=== PATIENT | male | born 1950 | race Two or more races ===

== ENCOUNTER → 2016-08-21 | Outpatient (CLI) | payer MEDICARE ==
--- NOTE | 2016-08-22 11:48 | US ---
EXAMINATION TYPE: US carotid duplex BILAT DATE OF EXAM: 08/21/2016 4:03 PM COMPARISON: NONE CLINICAL HISTORY: R09.89 Carotid Bruit. EXAM MEASUREMENTS: RIGHT: Peak Systolic Velocity (PSV) cm/sec ----- Right CCA: 75.6 ----- Right ICA: 78.9 ----- Right ECA: 109.6 ICA/CCA ratio: 1.0 RIGHT: End Diastole cm/sec ----- Right CCA: 22.7 ----- Right ICA: 28.2 ----- Right ECA: 11.1 LEFT: Peak Systolic Velocity (PSV) cm/sec ----- Left CCA: 105.3 ----- Left ICA: 83.3 ----- Left ECA: 162.9 ICA/CCA ratio: 0.8 LEFT: End Diastole cm/sec ----- Left CCA: 31.5 ----- Left ICA: 24.9 ----- Left ECA: 22.9 VERTEBRALS (direction of flow): Right Vertebral: Antegrade Left Vertebral: Antegrade Elevated left ECA. No significant stenosis. Plaque seen in right bulb, prox ECA and prox ICA. Plaq ue in left bulb. Bilateral wall thickening. Grayscale, color Doppler, spectral Doppler imaging performed of the carotid arteries, atheromatous ch anges are present within the carotid bulbs IMPRESSION: No hemodynamic significant stenosis of the proximal internal carotid arteries bilaterall y by Doppler criteria, an indirect measurement of carotid stenosis
== END | disposition home or self-care (01) ==
LOC: RADUSWWP 15:20
PROVIDERS: ATTEND Family Medicine
DX: R09.89 Other specified symptoms and signs involving the circulatory and respiratory systems (principal)
CPT/HCPCS: 93880

== ENCOUNTER → 2016-08-24 | Outpatient (CLI) | payer MEDICARE ==
[2016-08-24 08:24] LABS: Appearance,Urine Clear (Clear); Aty Lym Flag Slight; Basophils % (A) 0 %; Bilirubin,Urine Negative (Negative); CH 30.6; CHCM 33.2; Eosinophils # (A) 0.4 k/uL (0-0.7); Eosinophils % (A) 7 %; Glucose,Urine (UA) Negative (Negative); HCT 47.6 % (39.0-53.0); HDW 2.36; Ketones,Urine Negative (Negative); Leukocyte Esterase,Urine Negative (Negative); Luc # (Auto) 0.32; Luc % (Auto) 6; Lymphocytes # (A) 1.4 k/uL (1.0-4.8); Lymphocytes % (A) 25 %; MCH 31.1 pg (25.0-35.0); MCHC 33.6 g/dL (31.0-37.0); MCV 92.7 fL (80.0-100.0); Mean Platelet Volume 6.3; Monocytes # (A) 0.4 k/uL (0-1.0); Monocytes % (A) 8 %; Neutrophils % (A) 54 %; Nitrite,Urine Negative (Negative); Protein,Urine Negative (Negative); RBC 5.13 m/uL (4.30-5.90); RDW 13.6 % (11.5-15.5); UA Billing (MACRO vs. MICRO) CHEM; Urobilinogen,Urine <2.0 mg/dL (<2.0); WBC 5.5 k/uL (3.8-10.6); WBC (Perox) 5.52
[2016-08-24 08:52] LABS: ALT 40 U/L (21-72); AST 35 U/L (17-59); Alkaline Phosphatase 62 U/L (38-126); Anion Gap 10 mmol/L; Blood Urea Nitrogen 26 mg/dL (9-20); Calcium 9.4 mg/dL (8.4-10.2); Carbon Dioxide 25 mmol/L (22-30); Chloride 105 mmol/L (98-107); Cholesterol 256 mg/dL (<200); Glucose 100 mg/dL (74-99); HDL Cholesterol 51 mg/dL (40-60); Non-African American GFR(MDRD) >60 (>60 ml/min/1.73 sqM); Potassium 4.7 mmol/L (3.5-5.1); Sodium 140 mmol/L (137-145); Total Bilirubin 0.8 mg/dL (0.2-1.3); Triglycerides 172 mg/dL (<150)
== END | disposition home or self-care (01) ==
LOC: LABWHC1 07:47
PROVIDERS: ATTEND Family Medicine
DX: Z00.00 Encounter for general adult medical examination without abnormal findings (principal)
CPT/HCPCS: 36415; 80053; 80061; 81003; 85025